=== PATIENT | female | born 1955 | race Caucasian/White ===

== ENCOUNTER 2017-06-25 17:03 | Observation (INO) ==
--- NOTE | 2017-06-25 17:06 | Emergency Department Note ---
Disposition Clinical Impression: Chest pain, Near syncope, Paresthesias Disposition: Admitted As Inpatient Condition: Fair General Adult HPI - General Chief complaint: ED Chest Pain Stated complaint: CP / Arm Tingling Time Seen by Provider: 06/25/17 17:05 - Related Data Home Medications Medication Instructions Recorded Confirmed Cholecalciferol (D-3) [Vitamin D] 1,000 unit PO DAILY 06/25/17 06/25/17 Flaxseed Oil [[place]-3 Flaxseed Oil] 1,000 mg PO DAILY 06/25/17 06/25/17 Ginkgo Biloba 40 mg PO DAILY 06/25/17 06/25/17 Multivitamin [Multivitamins] 1 cap PO DAILY 06/25/17 06/25/17 [place]-3/Dha/Epa/Fish Oil [Fish Oil 1 cap PO DAILY 06/25/17 06/25/17 1,000 mg Softgel] Allergies Allergy/AdvReac Type Severity Reaction Status Date / Time No Known Allergies Allergy Verified 06/25/17 17:05 Course Vital Signs Temperature 98.1 F 06/25/17 17:08 Pulse Rate 75 06/25/17 17:08 Respiratory Rate 14 06/25/17 17:08 Blood Pressure 143/93 06/25/17 17:08 O2 Sat by Pulse Oximetry 98 06/25/17 17:08 Temperature 98.2 F 06/25/17 23:13 Pulse Rate 65 06/25/17 23:13 Respiratory Rate 16 06/25/17 23:13 Blood Pressure 113/72 06/25/17 23:13 O2 Sat by Pulse Oximetry 97 06/25/17 23:13 Oxygen Delivery Oxygen Delivery Room Air Medical Decision Making - Lab Data Result diagrams: 06/25/17 17:18 06/25/17 17:18 Lab Results 06/25/17 06/25/17 Range/Units 17:18 17:18 WBC 5.8 (4.3-11.1) K/mcL RBC 4.28 (3.82-4.97) M/mcL Hgb 12.8 (11.5-15.4) g/dL Hct 37.4 (35.3-44.9) % MCV 87.4 (83.0-100.0) fL MCH 29.9 (28.0-33.3) pg MCHC 34.2 (31.6-35.5) g/dL RDW 13.5 (11.5-14.5) % Plt Count 276 (140-400) K/mcL MPV 9.7 (9.4-12.4) fL Immature Gran % 0.2 (0-4) % Seg Neutrophils % 52.6 % Lymphocytes % 36.2 % Monocytes % 8.7 % Eosinophils % 1.4 % Basophils % 0.9 % Neutrophils # 3.1 (1.6-8.9) K/mcL Lymphocytes # 2.1 (0.6-4.6) K/mcL Monocytes # 0.5 (0.0-1.3) K/mcL Eosinophils # 0.1 (0.0-0.6) K/mcL Basophils # 0.1 (0.0-0.2) K/mcL Sodium 138 (136-145) mEq/L Potassium 3.7 (3.5-5.1) mEq/L Chloride 103 (98-107) mEq/L Carbon Dioxide 28 (23-29) mEq/L BUN 21 (8-23) mg/dL Creatinine 0.80 (0.60-1.20) mg/dL Est GFR ( Amer) > 60 (> 60) Est GFR (Non-Af Amer) > 60 (> 60) BUN/Creatinine Ratio 26 (6-26) Glucose 112 H (70-105) mg/dL Calculated Osmolality 290 (280-300) Calcium 10.1 (8.6-10.3) mg/dL Troponin I < 0.03 (< 0.04) ng/mL Attestation Statement - Attestation Attestation: I examined this patient and my medical decision-making was reviewed with the Resident Physician. I agree with the documented findings, disposition and treatment plan as described except to the extent set forth below. [id number] time provided Patient felt lightheaded and near syncopal. She developed chest pain and bilateral upper extremity numbness and tingling. She appears mildly anxious on arrival
[2017-06-25] MEDS ORDERED: Nitroglycerin 0.4 MG TAB.SUBL SL ONE (17:08)
[2017-06-25] MEDS ORDERED: Aspirin 81 MG TAB.CHEW PO ONE (17:08)
[2017-06-25 17:25] LABS: Eosinophils % 1.4 %; Hematocrit 37.4 % (35.3-44.9); Hemoglobin 12.8 g/dL (11.5-15.4); Immature Granulocytes % 0.2 % (0-4); Lymphocytes % 36.2 %; Mean Corpuscular HGB Conc 34.2 g/dL (31.6-35.5); Mean Corpuscular Hemoglobin 29.9 pg (28.0-33.3); Mean Corpuscular Volume 87.4 fL (83.0-100.0); Mean Platelet Volume 9.7 fL (9.4-12.4); Monocytes % 8.7 %; Platelet Count 276 K/mcL (140-400); Red Blood Count 4.28 M/mcL (3.82-4.97); Red Cell Distribution Width 13.5 % (11.5-14.5); Segmented Neutrophils % 52.6 %
[2017-06-25 17:26] LABS: Basophils # 0.1 K/mcL (0.0-0.2); Basophils % 0.9 %; Eosinophils # 0.1 K/mcL (0.0-0.6); Lymphocytes # 2.1 K/mcL (0.6-4.6); Monocytes # 0.5 K/mcL (0.0-1.3); Neutrophils # 3.1 K/mcL (1.6-8.9)
--- NOTE | 2017-06-25 17:37 | Emergency Department Note ---
Disposition Clinical Impression: Near syncope, Paresthesias Chest pain Qualifiers: Chest pain type: unspecified Qualified Code(s): R07.9 - Chest pain, unspecified Disposition: Admitted As Inpatient Condition: Fair Referrals: Sadia Mcguire CNP [Primary Care Provider] - Forms: ED Satisfaction Letter Time of Disposition: 18:39 Chest Pain HPI - General Chief Complaint: ED Chest Pain Stated Complaint: CP / Arm Tingling Time Seen by Provider: 06/25/17 17:05 Source: patient Mode of arrival: ambulatory Limitations: no limitations Vital Signs Reviewed: Yes Nursing Notes Reviewed: Yes - History of Present Illness HPI Narrative: Patient is a 61-year-old female who presents to [facility] ED with a chief complaint of lightheadedness, chest pain, bilateral hand tingling that started at approximately 6 hours ago. States the chest pain as a pressure that is substernal. Radiates to both her arms causing bilateral hand tingling. States she felt lightheaded like she was about to pass out. Patient states she did have an episode similar to this about 6 years ago that was an anxiety attack. She is not currently on any medications. Patient admits that she recently visited her brother who is in the hospital and dying of cancer. Pt complaint: chest pain Onset (ago): hour(s) Duration: constant Pain Location: substernal Severity: moderate Quality: heaviness Pain Radiation: RUE, LUE Improves with: nothing Worsens with: nothing Associated symptoms: Denies: nausea, vomiting, dyspnea Treatments prior to arrival chest pain: none - Related Data Allergies Allergy/AdvReac Type Severity Reaction Status Date / Time No Known Allergies Allergy Verified 06/25/17 17:05 All systems ED: reviewed and negative except as stated. Chest Pain PMH - Past Medical History Medical history: Reports: no medical history Physical Exam - General Limitations: no limitations General appearance: alert, in no apparent distress - Head Head exam: atraumatic, normocephalic, normal inspection - Eye Eye exam: Present: normal appearance, PERRL, EOMI - ENT ENT exam: normal exam, normal oropharynx, mucous membranes moist - Neck Neck exam: Present: normal inspection, full ROM, trachea midline - Chest Chest inspection: Present: normal inspection, symmetric chest wall rise - Respiratory Respiratory exam: Present: normal lung sounds bilaterally - Cardiovascular Cardiovascular exam: Present: regular rate, normal rhythm, normal heart sounds - Abdominal Exam Abdominal exam: Present: soft, Non-Tender. Absent: tenderness, distention, guarding, rebound, rigidity - Extremities Exam Extremities exam: Present: normal inspection, full ROM. Absent: tenderness, pedal edema - Back Exam Back exam: Present: normal inspection, full ROM. Absent: tenderness - Neurological Exam Neurological exam: Present: alert, oriented X3, CN II-XII intact, normal gait. Absent: motor sensory deficit - Psychiatric Psychiatric exam: Present: normal affect, normal mood - Skin Skin exam: Present: warm, dry, intact, normal color Course Course Narrative: Patient seen and examined. Chest pain with lightheadedness and bilateral hand tingling. No prior cardiac history. She does have a history of vascular disease with bilateral carotid plaques. She follows with her primary care physician yearly for this. Denies any medical problems for which she takes medications. Cardiopulmonary workup initiated. Nitroglycerin ordered to see if this will help with her pain. - Reevaluation(s) Reevaluation #1: Patient states that the nitroglycerin did not help. He gave her headache and made the arm discomfort worse. Her lab work is unremarkable. I did repeat an EKG when she said that her chest pain was worse after the nitroglycerin. EKG remains unchanged. Patient still seems somewhat anxious on my exam. She is worried about her blood pressure which was 130s over 90s and then 145 over 90s. I explained that it is normal for her to be elevated in the emergency department and that we do not need to treat her blood pressure at this time. I offered to give Ativan to help with her anxiety. Patient agrees to try this. Time: 18:11 Reevaluation #2: Patient feeling more calm but still having the chest pressure. Since we have been unable to make her symptoms go away, and patient's concern that she already has atherosclerosis and with her symptoms of near syncope today, we will go ahead and admit her for chest pain/syncope workup. Time: 18:35 Reevaluation #3: Discussed with hospitalist Dr. Meadows who has accepted patient for admission. Time: 18:39 Vital Signs Temperature 98.1 F 06/25/17 17:08 Pulse Rate 75 06/25/17 17:08 Respiratory Rate 14 06/25/17 17:08 Blood Pressure 143/93 06/25/17 17:08 O2 Sat by Pulse Oximetry 98 06/25/17 17:08 Temperature 98.1 F 06/25/17 17:08 Pulse Rate 78 06/25/17 18:32 Respiratory Rate 14 06/25/17 18:32 Blood Pressure 138/78 06/25/17 18:32 O2 Sat by Pulse Oximetry 98 06/25/17 18:32 Oxygen Delivery Oxygen Delivery Room Air Chest Pain - Medical Records Medical records reviewed: Yes I reviewed the patient's medical records. - Lab Data Lab results reviewed: Yes I reviewed the patient's lab results. Result diagrams: 06/25/17 17:18 06/25/17 17:18 Lab Results 06/25/17 06/25/17 Range/Units 17:18 17:18 WBC 5.8 (4.3-11.1) K/mcL RBC 4.28 (3.82-4.97) M/mcL Hgb 12.8 (11.5-15.4) g/dL Hct 37.4 (35.3-44.9) % MCV 87.4 (83.0-100.0) fL MCH 29.9 (28.0-33.3) pg MCHC 34.2 (31.6-35.5) g/dL RDW 13.5 (11.5-14.5) % Plt Count 276 (140-400) K/mcL MPV 9.7 (9.4-12.4) fL Immature Gran % 0.2 (0-4) % Seg Neutrophils % 52.6 % Lymphocytes % 36.2 % Monocytes % 8.7 % Eosinophils % 1.4 % Basophils % 0.9 % Neutrophils # 3.1 (1.6-8.9) K/mcL Lymphocytes # 2.1 (0.6-4.6) K/mcL Monocytes # 0.5 (0.0-1.3) K/mcL Eosinophils # 0.1 (0.0-0.6) K/mcL Basophils # 0.1 (0.0-0.2) K/mcL Sodium 138 (136-145) mEq/L Potassium 3.7 (3.5-5.1) mEq/L Chloride 103 (98-107) mEq/L Carbon Dioxide 28 (23-29) mEq/L BUN 21 (8-23) mg/dL Creatinine 0.80 (0.60-1.20) mg/dL Est GFR ( Amer) > 60 (> 60) Est GFR (Non-Af Amer) > 60 (> 60) BUN/Creatinine Ratio 26 (6-26) Glucose 112 H (70-105) mg/dL Calculated Osmolality 290 (280-300) Calcium 10.1 (8.6-10.3) mg/dL Troponin I < 0.03 (< 0.04) ng/mL - Radiology Data Radiology results reviewed: Yes I reviewed the patient's radiology results. Chest X-Ray 06/25/17 17:08 IMPRESSION: Stable portable study. D/ / Fina Zamudio Cha, MD / Fina Zamudio Cha, MD Interpreting Provider: Fina Zamudio Cha, MD - EKG Data EKG attestation: Yes I reviewed and interpreted this EKG. EKG results narrative: EKG done at 1708 shows normal sinus rhythm with a rate of [address] elevation or depression. Normal axis. Unchanged from prior EKG done 01/14/2013 EKG done at 1751 shows normal sinus rhythm with a rate of [address] elevation or depression. Normal axis. Also unchanged from prior EKG. Heart Score - Score History: Slightly Suspicious EKG: Normal Age: 45-65 Risk Factors: Equal/Greater than 3 risk factor or history of atherosclerotic disease Troponin: Less than normal limit HEART Score Total: 3
[2017-06-25 17:46] LABS: Troponin I < 0.03 ng/mL (< 0.04)
[2017-06-25 17:47] LABS: BUN/Creatinine Ratio 26 (6-26); Blood Urea Nitrogen 21 mg/dL (8-23); Calcium 10.1 mg/dL (8.6-10.3); Carbon Dioxide 28 mEq/L (23-29); Chloride 103 mEq/L (98-107); Glucose 112 mg/dL (70-105); Osmolality,Calculated 290 (280-300); Potassium 3.7 mEq/L (3.5-5.1); Sodium 138 mEq/L (136-145); eGFR For African Americans > 60 (> 60); eGFR For Non-African Americans > 60 (> 60)
[2017-06-25] MEDS ORDERED: *HR* LORazepam 2 MG/ML VIAL IVP ONE (18:04)
[2017-06-25] MEDS ORDERED: Naloxone 0.4 MG/ML INJ IVP PRN (19:41)
[2017-06-25] MEDS ORDERED: Nitroglycerin 0.4 MG TAB.SUBL SL PRN (19:47)
--- NOTE | 2017-06-25 19:52 | Internal Med History&Physical ---
Date of Encounter: 06/25/17 Time of Encounter: 19:52 Internal Medicine - H&P: HPI Chief complaint: Chest pressure/presyncopal episode Admitted From: Emergency Dept Plans for Post Hospital Care: Home History of present illness: Ms. Pelayo is a 61 year old female was no background medical history. Came to hospital with left-sided precordial chest pressure, nonradiating and localized associated with presyncopal episode. The chest pressure gets worse on movement and exercise and lives by rest. Patient had a similar episode 6 years back. Patient is presently going through a very stressful condition. Patient's brother is suffering from cancer and she is stressed out because of that. Patient denies nausea, vomiting, abdominal pain, dizziness and diarrhea. Workup in the emergency room: Patient was evaluated in the emergency room. Baseline labs were drawn. Chest x-ray was negative. EKG was within acceptable range. Reason for admission: Chest pain to rule out ACS. presyncopal/syncopal episode. Family history: Noncontributory Past Med Surg Social Fam HX - Past Medical History Medical history: no medical history Psychiatric history: no psych history - Social History Smoking Status: Never smoker Smokeless Tobacco Status: No Alcohol use: occasionally Drug use: none - Family History Mother Hx Family Cardiac Disorders: Yes (CHF) Internal Medicine - H&P: Meds Cholecalciferol (D-3) [Vitamin D] 1,000 unit PO DAILY 06/25/17 [History] Flaxseed Oil [[place]-3 Flaxseed Oil] 1,000 mg PO DAILY 06/25/17 [History] Ginkgo Biloba 40 mg PO DAILY 06/25/17 [History] Multivitamin [Multivitamins] 1 cap PO DAILY 06/25/17 [History] [place]-3/Dha/Epa/Fish Oil [Fish Oil 1,000 mg Softgel] 1 cap PO DAILY 06/25/17 [ History] 3 Allergy/AdvReac Type Severity Reaction Status Date / Time No Known Allergies Allergy Verified 06/25/17 17:05 All Systems PM: A 10-system review of systems was performed and is negative for pertinent findings except as documented above in the HPI. - Constitutional Constitutional: no chills, no fever(s), no night sweats - EENT Eyes: no change in vision, no discharge, no pain, no photophobia Ears: no ear discharge, no ear pain, no tinnitus Nose, mouth and throat: no dysphagia, no nasal discharge, no neck pain, no sore throat - Cardiovascular Cardiovascular ROS IM: chest pain, lightheadedness, palpitations, no diaphoresis , no dyspnea, no syncope - Respiratory Respiratory: no cough, no dyspnea, no wheezing, no excessive phlegm production - Gastrointestinal Gastrointestinal: no abdominal pain, no diarrhea, no hematemesis, no hematochezia, no melena, no nausea, no vomiting - Genitourinary Genitourinary: no change in urinary stream, no dysuria, no flank pain, no hematuria - Musculoskeletal Musculoskeletal ROS IM: no numbness, no tingling - Integumentary Integumentary IM: no rash, no unusual bruising - Neurological Neurological ROS: no confusion, no convulsions, no focal weakness, no numbness, no tingling, no tremor(s) - Hematologic/Lymphatic Hematologic/Lymphatic: no easy bruising - Constitutional Vitals: Temp Pulse Resp BP Pulse Ox 98.2 F 77 16 126/73 95 06/25/17 19:33 06/25/17 19:33 06/25/17 19:33 06/25/17 19:33 06/25/17 19:33 General appearance: Present: A&O X 3, pleasant, no acute distress, answers questions appropriately - Head Head exam: Present: atraumatic, normocephalic - Eye Eye exam: Present: PERRL, conjuntiva pink, sclera anicteric Pupils: Present: PERRL - Neck Neck exam general surgery: Present: supple, trachea midline. Absent: lymphadenopathy - Respiratory Respiratory exam: Present: CTAB. Absent: accessory muscle use, rales, rhonchi, wheezes - Cardiovascular Cardiovascular exam: Present: RRR, +S1, +S2. Absent: diastolic murmur, gallop, rubs, systolic murmur - GI/Abdominal GI/Abdominal exam: Present: normal bowel sounds, soft, no peritoneal signs. Absent: distended, tenderness - Extremities Exam Extremities exam: Present: warm, radial pulses palpable and symmetrical. Absent : calf tenderness, cyanotic, pedal edema - Neurological Exam Neurological exam: Present: CN II-XII intact, oriented X3, no focal deficits. Absent: pronater drift, facial droop, speech deficit - Skin Skin exam: Present: dry, intact Internal Med - H&P Results - Labs CBC & Chem 7: 06/25/17 17:18 06/25/17 17:18 - Assessment and plan (1) Chest pain Current Visit: Yes Status: Acute Assessment and plan: 61/female Admitted with chest pressure/near syncope. Plan: Admit as observation. Cardiac diet Aspirin/metoprolol/Lipitor. Sublingual nitroglycerin. Cycle troponin. Echocardiogram. If 3 troponins negative/echocardiogram normal: Please consider stress test. I examined this patient in the emergency room #18. Patient's patient's family member was at bedside. During the examination fire apparatus engineer was present. Plan of care explained to the patient and family member. The verbalize understanding. Qualifiers: Chest pain type: unspecified Qualified Code(s): R07.9 - Chest pain, unspecified (2) Near syncope Current Visit: Yes Status: Acute Assessment and plan: Noted patient has a near syncopal episode. We will get CT head without contrast. Ultrasound carotid: 04/2017: Bilateral 40-59% obstruction. Please consider MRI if necessary/recurrence of the symptoms. (3) DVT prophylaxis Current Visit: Yes Status: Acute Assessment and plan: Heparin Medical decision making: This patient has a moderate to severe risk of worsening in spite of being on appropriate medication due to the underlying complex medical condition. - Time Spent With Patient Total time spent is greater than 50% in coordination of care (as documented) at patient's floor/unit and/or counseling patient:
[2017-06-25] MEDS: *HR* Heparin 5,000 UNIT/ML VIAL SQ SCH (22:17)
[2017-06-26] MEDS: *HR* Heparin 5,000 UNIT/ML VIAL SQ SCH ×3 (05:09→20:44)
[2017-06-26 07:02] LABS: Basophils # 0.1 K/mcL (0.0-0.2); Eosinophils # 0.1 K/mcL (0.0-0.6); Eosinophils % 1.9 %; Hematocrit 33.9 % (35.3-44.9); Hemoglobin 11.7 g/dL (11.5-15.4); Lymphocytes # 2.1 K/mcL (0.6-4.6); Lymphocytes % 43.2 %; Mean Corpuscular HGB Conc 34.5 g/dL (31.6-35.5); Mean Corpuscular Hemoglobin 30.2 pg (28.0-33.3); Mean Corpuscular Volume 87.4 fL (83.0-100.0); Mean Platelet Volume 9.9 fL (9.4-12.4); Monocytes # 0.4 K/mcL (0.0-1.3); Monocytes % 8.3 %; Neutrophils # 2.2 K/mcL (1.6-8.9); Platelet Count 216 K/mcL (140-400); Red Blood Count 3.88 M/mcL (3.82-4.97); Red Cell Distribution Width 13.5 % (11.5-14.5); Segmented Neutrophils % 45.6 %
[2017-06-26 07:08] LABS: Activated Partial Thrombo Time 26.1 Seconds (26.0-36.0)
[2017-06-26 07:15] LABS: Alanine Aminotransferase 23 Units/L (7-52); Albumin 4.2 g/dL (3.5-5.7); Albumin/Globulin Ratio 2.1 (1.1-2.2); Alkaline Phosphatase 60 Units/L (34-104); Aspartate Amino Transferase 21 Units/L (13-39); BUN/Creatinine Ratio 25 (6-26); Bilirubin,Total 0.4 mg/dL (0.3-1.0); Blood Urea Nitrogen 16 mg/dL (8-23); Calcium 9.5 mg/dL (8.6-10.3); Carbon Dioxide 26 mEq/L (23-29); Chloride 108 mEq/L (98-107); Chol/HDL Ratio 5.6 (0-4.9); Cholesterol 225 mg/dL (< 200); Glucose 91 mg/dL (70-105); HDL Cholesterol 40 mg/dL (40-59); LDL Cholesterol,Calculated 150 mg/dL (0-99); Magnesium 2.2 mg/dL (1.6-2.6); Osmolality,Calculated 293 (280-300); Phosphorous 3.9 mg/dL (2.7-4.5); Potassium 3.9 mEq/L (3.5-5.1); Sodium 141 mEq/L (136-145); Total Protein 6.2 g/dL (6.4-8.9); Triglycerides 177 mg/dL (< 150); eGFR For African Americans > 60 (> 60); eGFR For Non-African Americans > 60 (> 60)
[2017-06-26] MEDS: Aspirin Enteric Coated 81 MG Tablet PO SCH (07:39)
[2017-06-26 10:36] LABS: Estimated Average Glucose 131 mg/dl; Hemoglobin A1C 6.2 %
--- NOTE | 2017-06-26 11:16 | Internal Med Progress Note ---
Date of Encounter: 06/26/17 Time of Encounter: 11:14 - Assessment and plan (1) Chest pain Current Visit: Yes Status: Acute Assessment and plan: Admitted with chest pressure/near syncope-patient states that she has been experiencing a lot of stress no past cardiac history. Cardiac enzymes have been negative 3 pending echo results she does continue to have some chest pressure which is reproducible upon palpation. We will make patient nothing by mouth after midnight for stress test in a.m. Check TSH Continuous cardiac monitoring Nitroglycerin as needed Continue with aspirin and Lipitor we will hold metoprolol for now due to hypotension Qualifiers: Chest pain type: unspecified Qualified Code(s): R07.9 - Chest pain, unspecified (2) Near syncope Current Visit: Yes Status: Acute Assessment and plan: Noted patient has a near syncopal episode.- CT head without contrast negative Ultrasound carotid: 04/2017: Bilateral 40-59% obstruction.-Continue with aspirin and statin Please consider MRI if necessary/recurrence of the symptoms. Obtain orthostatic vital signs Echo pending (3) DVT prophylaxis Current Visit: Yes Status: Acute Assessment and plan: Heparin subcutaneous - Time Spent With Patient Total time spent is greater than 50% in coordination of care (as documented) at patient's floor/unit and/or counseling patient: - Subjective Interval history: This patient is new to me I did review medical records. I did examine patient bedside. Presently patient complains of constant chest pressure as well as headache and head pressure. Patient expresses that she has been under a lot of stress her brother this morning she is having difficulties at work as well as a daughter that is going through a divorce. She denies any past experiences of panic attacks however does confirm anxiety. We will make patient nothing by mouth after midnight patient will undergo stress test in a.m. I reviewed treatment plan with patient who verbalized understanding. - Constitutional Vitals: Temp Pulse Resp BP Pulse Ox 98.2 F 74 15 116/73 97 06/26/17 11:01 06/26/17 11:01 06/26/17 11:01 06/26/17 11:01 06/26/17 11:01 General appearance: Present: A&O X 3, pleasant, no acute distress, answers questions appropriately - Head Head exam: Present: atraumatic, normocephalic - Eye Eye exam: Present: PERRL, conjuntiva pink, sclera anicteric Pupils: Present: PERRL - Neck Neck exam general surgery: Present: supple, trachea midline. Absent: lymphadenopathy - Respiratory Respiratory exam: Present: CTAB. Absent: accessory muscle use, rales, rhonchi, wheezes - Cardiovascular Cardiovascular exam: Present: RRR, +S1, +S2. Absent: diastolic murmur, gallop, rubs, systolic murmur - GI/Abdominal GI/Abdominal exam: Present: normal bowel sounds, soft, no peritoneal signs. Absent: distended, tenderness - Extremities Exam Extremities exam: Present: warm, radial pulses palpable and symmetrical. Absent : calf tenderness, cyanotic, pedal edema - Neurological Exam Neurological exam: Present: CN II-XII intact, oriented X3, no focal deficits. Absent: pronater drift, facial droop, speech deficit - Skin Skin exam: Present: dry, intact Internal Medicine: Result - Labs CBC & Chem 7: 06/26/17 06:28 06/26/17 06:28 Labs: Short CBC 06/26/17 Range/Units 06:28 WBC 4.8 (4.3-11.1) K/mcL Hgb 11.7 (11.5-15.4) g/dL Hct 33.9 L (35.3-44.9) % Plt Count 216 (140-400) K/mcL Neutrophils # 2.2 (1.6-8.9) K/mcL BMP 06/26/17 06:28 Sodium 141 Potassium 3.9 Chloride 108 H Carbon Dioxide 26 BUN 16 Creatinine 0.63 Glucose 91 Calcium 9.5 Cardiac Enzymes 06/25/17 06/26/17 Range/Units 22:57 06:28 Troponin I < 0.03 < 0.03 (< 0.04) ng/mL Liver Function 06/26/17 Range/Units 06:28 Total Bilirubin 0.4 (0.3-1.0) mg/dL AST 21 (13-39) Units/L ALT 23 (7-52) Units/L Alkaline Phosphatase 60 (34-104) Units/L Albumin 4.2 (3.5-5.7) g/dL - ABG Interpretation ABG results: PT/INR, D-dimer PT 11.0 Seconds (9.4-12.1) 06/26/17 06:28 - Impressions Impressions Head CT 06/25/17 19:42 IMPRESSION: No acute intracranial abnormality. D/ / Cristi Weaver MD / Cristi Weaver MD Interpreting Provider: Cristi Weaver MD Consult Discharge Plan - Plan Referrals: Sadia Mcguire, CORPORATE LOGISTICS MANAGER [Primary Care Provider] -
[2017-06-26] MEDS ORDERED: Acetaminophen 325 MG TABLET PO PRN (16:50)
--- NOTE | 2017-06-27 05:23 | Electrocardiograph Report ---
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
--- NOTE | 2017-06-27 05:24 | Electrocardiograph Report ---
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
[2017-06-27] MEDS ORDERED: Regadenoson 0.4 MG/5 ML SYRINGE IVP ONE (05:37)
[2017-06-27] MEDS: *HR* Heparin 5,000 UNIT/ML VIAL SQ SCH (06:03)
[2017-06-27] MEDS: Aspirin Enteric Coated 81 MG Tablet PO SCH (11:19)
--- NOTE | 2017-06-27 12:48 | Discharge Summary ---
- NOTES TO OUTPATIENT PROVIDER Notes to Outpatient Provider: Pharm nuclear stress test- negative for any ischemia or infarct- will need follow up with vascular Orders not resulted at time of discharge: Pending orders 06/27/17 05:48 NM shikha perf SPECT multi [NM] Routine Date of Encounter: 06/27/17 Time of Encounter: 12:44 - Discharge Diagnosis (1) Chest pain Priority: Primary Status: Acute Qualifiers: Chest pain type: unspecified Qualified Code(s): R07.9 - Chest pain, unspecified (2) Near syncope Priority: Primary Status: Acute Hospital course: Ms. Pelayo is a 61 year old female with no past medical history. Patient presented to the [facility] ER complaining of left-sided precordial chest pressure which is nonradiating as well as a presyncopal episode. Chest pressure was aggravated with movement and exercise and relieved with rest. According the patient she is under a lot of stress. She does have a brother who just recently from cancer as well as a daughter who is going through a divorce and she is experiencing some work-related issues. Patient did experience some lightheadedness, she checked her pulse and it was very fast. Troponins were negative 3 chest x-ray was negative EKG with no ST-T wave abnormality. Echo with EF of 60% normal LV chamber size thickness and function mild left ventricular diastolic dysfunction normal right ventricular structure and function mild tricuspid regurgitation no pulmonary hypertension. She did have a carotid Doppler completed 2 months ago-there is 4859% stenosis in bilateral internal carotid artery -she was seen by Dr. Cartwright with no surgical intervention required at that time. Orthostatic vital signs were within normal limits She did undergo a pharm nuclear cardiac stress test which was negative for any ischemia or infarct. Patient is hemodynamically stable at this time denies any chest pain stress of breath. She does express concerns about going to her brother's on Saturday due to anxiety. I advised patient to follow-up with PCP as well as vascular surgery area she will will be given prescription for atorvastatin advised to continue with aspirin. Patient verbalized understanding she is ready for discharge. Discharge discussed with: patient - Time Spent with Patient Total time spent providing and/or coordinating discharge services: - Discharge Medications Prescriptions: Atorvastatin [Lipitor] 20 mg PO HS #30 tablet Home Medications: Cholecalciferol (D-3) [Vitamin D] 1,000 unit PO DAILY 06/25/17 [History] Flaxseed Oil [[place]-3 Flaxseed Oil] 1,000 mg PO DAILY 06/25/17 [History] Ginkgo Biloba 40 mg PO DAILY 06/25/17 [History] Multivitamin [Multivitamins] 1 cap PO DAILY 06/25/17 [History] [place]-3/Dha/Epa/Fish Oil [Fish Oil 1,000 mg Softgel] 1 cap PO DAILY 06/25/17 [ History] Atorvastatin [Lipitor] 20 mg PO HS #30 tablet 06/27/17 [Rx] Allergies/Adverse Reactions: 3 Allergy/AdvReac Type Severity Reaction Status Date / Time No Known Allergies Allergy Verified 06/25/17 17:05 Date of admission: 06/25/17 18:51 Primary care physician: Sadia Mcguire CNP Discharging clinician: Kaitlin Nava Anticipated date of discharge: 06/27/17 - Constitutional Vitals: Temp Pulse Resp BP Pulse Ox 98.1 F 73 18 101/66 98 06/27/17 11:09 06/27/17 11:09 06/27/17 11:09 06/27/17 11:09 06/27/17 11:09 General appearance: Present: A&O X 3, pleasant, no acute distress, answers questions appropriately - Head Head exam: Present: atraumatic, normocephalic - Eye Eye exam: Present: PERRL, conjuntiva pink, sclera anicteric Pupils: Present: PERRL - Neck Neck exam general surgery: Present: supple, trachea midline. Absent: lymphadenopathy - Respiratory Respiratory exam: Present: CTAB. Absent: accessory muscle use, rales, rhonchi, wheezes - Cardiovascular Cardiovascular exam: Present: RRR, +S1, +S2. Absent: diastolic murmur, gallop, rubs, systolic murmur - GI/Abdominal GI/Abdominal exam: Present: normal bowel sounds, soft, no peritoneal signs. Absent: distended, tenderness - Extremities Exam Extremities exam: Present: warm, radial pulses palpable and symmetrical. Absent : calf tenderness, cyanotic, pedal edema - Neurological Exam Neurological exam: Present: CN II-XII intact, oriented X3, no focal deficits. Absent: pronater drift, facial droop, speech deficit - Skin Skin exam: Present: dry, intact - Patient Status Disposition: Home, Self-Care Condition: Fair Overall status at discharge: patient is back to baseline - Discharge Instructions Follow Up With: Sadia Mcguire CNP [Primary Care Provider] - Juan Castellanos MD [Partnered Physician] - - Diet and Activity Activity: increase activity as tolerated Diet: advance to your usual diet
[2017-06-27 15:01] VITALS: BP 114/76
== END 2017-06-27 15:31 | disposition home or self-care (01) ==
LOC: EMEROO 17:03 → 3BNU 17:03
PROVIDERS: ADMIT Internal Medicine; ATTEND Internal Medicine